=== PATIENT | male | born 1965 | race Caucasian/White ===

== ENCOUNTER 2018-04-13 18:19 | Emergency (ER) | payer MEDICARE, SELFPAY ==
--- NOTE | 2018-04-13 18:19 | DT_ITS ---
This patient was seen during an EMR downtime April 06, 2018 - April 13, 2018. This patient may have a combination of paper and electronic documentation or all paper documentation. All documentation is viewable within the e-chart portion of [employer] [facility] for each patient visit.
[2018-04-13 18:20] VITALS: BP 94/64; PULSE 81; RESP 16; TEMP 36.5; O2SAT 92; BMI 29.0
--- NOTE | 2018-04-13 18:45 | EKG12_ITS ---
Test Reason : SYNCOPE Blood Pressure : / mmHG Vent. Rate : 077 BPM Atrial Rate : 077 BPM P-R Int : 164 ms QRS Dur : 102 ms QT Int : 392 ms P-R-T Axes : 050 -09 045 degrees QTc Int : 443 ms Normal sinus rhythm Normal ECG Confirmed by NGOZI CAMPOVERDE, SELENE ([id number]), deputy editor in chief MARIA LILLY ([id number]) on 04/15/2018 5:18:04 PM Referred By: DR BORRERO Confirmed By:SELENE MELVIN MD
--- NOTE | 2018-04-13 18:45 | CT_ITS ---
STUDY: CT BRAIN WITHOUT CONTRAST REASON FOR EXAM: Male, 52 years old. Dizziness RADIATION DOSAGE (If Supplied By Facility): CTDIvol = ( 44.99 ) mGy, DLP = ( 745.49 ) mGycm TECHNIQUE: Transaxial CT imaging of the brain was performed without administration of intravenous contrast material. Individualized dose optimization techniques were used for this CT. COMPARISON: 03/12/2016 FINDINGS: There are stable bilateral old basal ganglia lacunar infarcts. There is no acute bleed or infarct. There are stable chronic ischemic and atrophic changes. The ventricles are normal in configuration. There is no hydrocephalus. The visualized paranasal sinuses are clear. The mastoid air cells are well aerated. There is no skull fracture. CT/Brain/Head without Contrast IMPRESSION: Stable chronic ischemic and atrophic changes. No acute intracranial abnormality. Stable bilateral old basal ganglia lacunar infarcts. Electronically Signed: Perry Herring, at 19:43 EDT Tel , Service support ,
[2018-04-13] MEDS: 0.9% Normal Saline 1,000 ML 1000 ML IV (18:53)
[2018-04-13 18:55] LABS: Bedside Glucose 173 mg/dL (70-110)
[2018-04-13 19:34] LABS: Anion Gap 7 (5-15); BUN 9 mg/dL (7-18); Calcium,Total 9.4 mg/dL (8.5-10.1); Chloride 104 mmol/L (98-107); Creatinine, Serum 1.79 mg/dL (0.70-1.30); EST Glomerular Filtration Rate 43 mL/min (>60); Est Glom Filt Rate - Afr Amer 51 mL/min (>60); Glucose 150 mg/dL (74-106); Potassium 4.4 mmol/L (3.5-5.1); Sodium Level 139 mmol/L (136-145)
[2018-04-13 19:38] LABS: Absolute Lymphocyte Count 0.99 X10^3/ul (0.83-4.51); Absolute Neutrophil Count 11.7 X10^3/uL (2.0-7.7); Basophil# 0.02 X10^3/uL; Basophil% 0.2 % (0-1); Eosinophil# 0.04 X10^3/uL; Eosinophils% 0.3 % (0-5); Hematocrit 48.5 % (40-54); Lymphocyte # 0.99 X10^3/ul (4.0); Lymphocyte % 7.4 % (19-41); Mean Corp Hgb Conc 35.1 g/gl (32-36); Mean Corpuscular Hgb 32.8 pg (27.0-32.0); Mean Corpuscular Volume 93.6 fL (80-94); Mean Platelet Vol. 9.6 fl (6.2-12.0); Monocyte# 0.54 X10^3/uL; Monocyte% 4.1 % (0-10); Neutrophil # 11.71 X10^3/uL (2.7-7.7); Neutrophil % 87.8 % (47-70); Platelet Count 198 K/mm3 (150-450); RBC Distribution Width CV 14.6 % (11.6-14.6); Red Blood Count 5.18 M/mm3 (4.6-6.2); White Blood Count 13.3 K/mm3 (4.4-11.0)
[2018-04-13 19:42] VITALS: BP 116/72; PULSE 67; RESP 16; TEMP 36.5; O2SAT 95
[2018-04-13 19:48] LABS: POSITIVE COUNT NO; POSITIVE DIFFERENTIAL NO; POSITIVE MORPHOLOGY NO
[2018-04-13] MEDS: 0.9% Normal Saline 1,000 ML 150 ML IV (19:55)
[2018-04-13 21:04] VITALS: BP 110/84; BP 117/91; BP 125/84; PULSE 57; PULSE 67; PULSE 92
--- NOTE | 2018-04-13 21:39 | ED.DCSUM_ITS ---
- ER Visit Summary Date of Service: 04/13/18 Chief Complaint: Dizzy History of Present Illness: The patient is a 52 M who was working outside at noon today. Patient states he got lightheaded and dizzy that was worse whenever he tried to stand up. He denies chest pain or palpitations. He did not pass out. He does state that he took 3 medications at bedtime last night that he does not normally take. This included Vistaril along with something for bedwetting and something for restless legs. He does not know the names. Patient tells me he had similar symptoms with a prior stroke 2 years ago. On review of records he had presented with left-sided hemiplegia at that time. He denies any weakness currently. He states that all of his symptoms from his prior stroke were resolved and he has no residual deficits. Physical Examination: Blood pressure is 94/64, temperature 97.7, heart rate 81, respiratory rate 16, pulse ox 92% on room air. Patient sitting upright in bed no acute distress. He is alert and talkative. Head neck examination is unremarkable. Heart is regular rate and rhythm. Lung sounds are clear. Abdomen is soft and nontender. Neuro exam reveals no focal deficits. His NIH score is 0. Test Results: EKG is sinus at 77 with no sign of acute ischemia. CBC was a white count of 13.3 with 87% neutrophils. Hemoglobin is concentrated at 17.0. Chemistry studies reveal glucose of 150 and a creatinine of 1.79. Prior creatinines from 2 years ago was 0[address] scan of the head shows stable chronic ischemic and atrophic changes. He has no acute abnormality noted. There is stable old bilateral basal ganglier lacunar infarcts. Emergency Department Course and Treatment: Patient received IV fluids here. Repeat blood pressure is 113/76 with a heart rate of 68. Orthostatic vital signs are obtained. He has no dizziness or lightheadedness with standing currently. Patient advises me that he will increase fluids over the next several days and follow-up with his family physician. Treatment Plan: [] Disposition: Discharge Impression: Dehydration This note was generated with [employer] dictation software. It may contain incorrect words, spelling, and punctuation that were not noted in review of the chart prior to signing ED Disposition - Plan for ED Patient: Chief Complaint: Dizziness Referrals: Dada Piper DO [Primary Care Provider] -
--- NOTE | 2018-04-13 21:39 | ED.DEP ---
ED Disposition - Plan for ED Patient: Disposition: Home or Assisted Living Chief Complaint: Dizziness Instructions: ED Dehydration Referrals: Milton Daniels MD [NON-STAFF] - 1 Week
[2018-04-13 21:46] VITALS: BP 126/93; PULSE 67; RESP 11; O2SAT 99
== END 2018-04-13 21:49 | disposition home or self-care (01) ==
PROVIDERS: Emergency Provider Emergency Medicine; Family Provider Pediatrics; PCP Pediatrics
DX: E86.0 Dehydration (principal); Z86.73 Personal history of transient ischemic attack (TIA), and cerebral infarction without residual deficits
CPT/HCPCS: 70450; 80048; 82962; 84484; 85025; 93005; 96360; 96361; 99285; J7030; A4216

== ENCOUNTER 2018-06-09 13:06 | Emergency (ER) | payer MEDICARE, SELFPAY ==
[2018-06-09 13:09] VITALS: BP 130/85; PULSE 64; RESP 16; TEMP 36.6; O2SAT 99; BMI 32.7
--- NOTE | 2018-06-09 15:15 | ED.DCSUM_ITS ---
- ER Visit Summary Date of Service: 06/09/18 Chief Complaint: [Redness and swelling right knee] History of Present Illness: The patient is a 52 M [presents the emergency department complaint redness and swelling to the right knee that started 2 days ago. Patient states initially had some mild discomfort that then progressed to a pimple-like lesion. Patient noticed increased redness and pain today. Patient did not attempt to squeeze it himself. Patient has not had a fever.] Physical Examination: [Right knee-superior aspect the right knee there is a soft tissue swelling measuring approximately 3.5 cm in diameter with surrounding erythema. Central portion is fluctuant with a head noted with pus underneath the skin. Patient has mild surrounding erythema and cellulitis. No pain with range of motion of the knee. I do not believe his exam is consistent with a septic knee.] Test Results: [None indicated] Emergency Department Course and Treatment: Patient was offered incision and drainage to which she agreed. Wound sterilely draped and prepped. Wound cleansed with Shur-Clens and irrigated with copious saline. Using 1% lidocaine with epi I used 3 cc to anesthetize the area. Using an 11 blade I made 1.5 cm incision through the central fluctuant portion of the suspected abscess and large amount of free-flowing purulent debris was expressed. I then used curved hemostats to undermine the soft tissues and again express large amount of purulent debris. Clean dressing was applied.] Treatment Plan: [Patient will be started on Keflex] Disposition: Discharged home in stable condition [] Impression: [Soft tissue abscess right knee-with incision and drainage] This note was generated with j[employer]store dictation software. It may contain incorrect words, spelling, and punctuation that were not noted in review of the chart prior to signing ED Disposition - Plan for ED Patient: Chief Complaint: Lower Extremity Injury Referrals: Milton Daniels MD [Primary Care Provider] -
--- NOTE | 2018-06-09 15:15 | ED.DEP ---
ED Disposition - Plan for ED Patient: Chief Complaint: Lower Extremity Injury Instructions: ED Abscess IandD Prescriptions: Cephalexin [Keflex] 500 mg PO Q6 #40 cap Referrals: Milton Daniels MD [Primary Care Provider] - 3-5 Days
[2018-06-09 15:41] VITALS: BP 128/65; PULSE 66; RESP 18; O2SAT 99
== END 2018-06-09 15:42 | disposition home or self-care (01) ==
LOC: ED 15:12
PROVIDERS: Emergency Provider Emergency Medicine; Family Provider Family Medicine; PCP Family Medicine
DX: L02.415 Cutaneous abscess of right lower limb (principal); B96.89 Other specified bacterial agents as the cause of diseases classified elsewhere; J44.9 Chronic obstructive pulmonary disease, unspecified; E66.9 Obesity, unspecified; Z68.32 Body mass index [BMI] 32.0-32.9, adult; Z86.73 Personal history of transient ischemic attack (TIA), and cerebral infarction without residual deficits; Z87.891 Personal history of nicotine dependence; Z79.01 Long term (current) use of anticoagulants; Z79.899 Other long term (current) drug therapy
CPT/HCPCS: 10060; 99282

== ENCOUNTER 2020-04-26 23:04 | Emergency (ER) | payer MEDICARE, SELFPAY ==
[2020-04-26 23:04] VITALS: BP 127/76; PULSE 62; RESP 20; TEMP 36.2; O2SAT 98; BMI 28.8
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
[2020-04-26] MEDS: Lidocaine/Epi/Tetracaine 50 ML 1 APPLIC TOPICAL (23:36)
[2020-04-27 00:40] VITALS: BP 124/72; PULSE 70; RESP 16; O2SAT 97
== END 2020-04-27 00:42 | disposition home or self-care (01) ==
PROVIDERS: Emergency Provider Emergency Medicine; PCP Family Medicine
DX: S01.81XA Laceration without foreign body of other part of head, initial encounter (principal); F17.200 Nicotine dependence, unspecified, uncomplicated; Z79.02 Long term (current) use of antithrombotics/antiplatelets; X58.XXXA Exposure to other specified factors, initial encounter
CPT/HCPCS: 12011; 99283

== ENCOUNTER 2020-06-12 18:44 | Emergency (ER) | payer MEDICARE, SELFPAY ==
[2020-06-12 18:45] VITALS: BP 114/74; PULSE 84; RESP 18; TEMP 36.2; O2SAT 97; BMI 29.4
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
[2020-06-12] MEDS: Cephalexin 250 MG Capsule 500 MG PO (21:51)
== END 2020-06-12 21:54 | disposition home or self-care (01) ==
PROVIDERS: Emergency Provider Emergency Medicine; PCP Family Medicine
DX: L03.116 Cellulitis of left lower limb (principal); Z87.891 Personal history of nicotine dependence; Z86.73 Personal history of transient ischemic attack (TIA), and cerebral infarction without residual deficits
CPT/HCPCS: 99283